=== PATIENT | female | born 1965 | race Caucasian/White ===

== ENCOUNTER 2019-07-03 01:30 | Emergency (ER) | payer OTHER ==
[2019-07-03] MEDS ORDERED: HALOPERIDOL LACTATE INJ 5 MG/1 ML VIAL IM ONE (02:19)
--- NOTE | 2019-07-03 02:23 | ER Document Report ---
ED Psych Disorder / Suicide <JOSE KIDD - Last Filed: 07/03/19 08:04> <ISAK BERNARDO - Last Filed: 07/03/19 11:29> <BASILIOKEDARDANIEL Steel - Last Filed: 07/03/19 12:49> - General Chief Complaint: Psych Problem Stated Complaint: PSYCH Time Seen by Provider: 07/03/19 02:10 Primary Care Provider: [facility] [Outside] - Follow up as needed LUIS BEAVERS MD [Primary Care Provider] - Follow up as needed Notes: Patient is a 53-year-old female that comes to the emergency department for chief complaint of bizarre behavior. She comes by EMS. Son states that he is staying with her temporarily because her on 06/27/2019, he states that she has not slept in days, he states this morning she became extremely bizarre, left the house, left her phone, had to be tracked down by the police. She then refused to come into the house for 4 hours, afterwards she simply stopped responding, she refuses to answer any questions, keeps her eyes shut, she refuses to speak, and she also disappeared again briefly and shaved her head. She does not have a history of psychiatric illness, she is does not have a history of bizarre behavior, she does not have a history of drug abuse. Past medical history of type 2 diabetes, hysterectomy, hormone therapy. (JOSE KIDD) - Related Data Allergies/Adverse Reactions: No Known Allergies Allergy (Unverified 07/03/19 03:13) Past Medical History - General Information source: Relative - son Cannot obtain history due to: Uncooperative - Social History Smoking Status: Never Smoker Frequency of alcohol use: None Drug Abuse: None Lives with: Family Family History: Reviewed & Not Pertinent Patient has suicidal ideation: No Patient has homicidal ideation: No Endocrine Medical History: Reports: Hx Diabetes Mellitus Type 2 Past Surgical History: Reports: Hx Hysterectomy - Immunizations Immunizations up to date: Yes Hx Diphtheria, Pertussis, Tetanus Vaccination: Yes <JOSE KIDD - Last Filed: 07/03/19 08:04> Review of Systems - Review of Systems Constitutional: No symptoms reported EENT: No symptoms reported Cardiovascular: No symptoms reported Respiratory: No symptoms reported Gastrointestinal: No symptoms reported Genitourinary: No symptoms reported Female Genitourinary: No symptoms reported Musculoskeletal: No symptoms reported Skin: No symptoms reported Hematologic/Lymphatic: No symptoms reported Neurological/Psychological: See HPI <JOSE KIDD - Last Filed: 07/03/19 08:04> Physical Exam <JOSE KIDD - Last Filed: 07/03/19 08:04> - Vital signs Vitals: Temp Pulse Resp BP Pulse Ox 98.3 F 105 H 17 113/60 100 07/03/19 02:11 07/03/19 02:11 07/03/19 02:11 07/03/19 02:11 07/03/19 02:11 - Notes Notes: GENERAL: Patient clutching a pillow to her chest, eyes closed, will not respond to me HEAD: Normocephalic, atraumatic. EYES: Pupils equal, round, and reactive to light. Extraocular movements intact. ENT: Oral mucosa moist, tongue midline. Oropharynx unremarkable. Airway patent. NECK: Full range of motion. Supple. Trachea midline. LUNGS: Clear to auscultation bilaterally, no wheezes, rales, or rhonchi. No respiratory distress. HEART: Borderline tachycardia, no murmur, normal rhythm ABDOMEN: Soft, non-tender. Non-distended. Bowel sounds present in all 4 quadrants. GENITOURINARY: Deferred EXTREMITIES: Moves all 4 extremities spontaneously. No edema, normal radial and dorsalis pedis pulses bilaterally. No cyanosis. BACK: no cervical, thoracic, lumbar midline tenderness. No saddle anesthesia, normal distal neurovascular exam. Moves all extremities in full range of motion. PSYCH: Refuses to answer questions or follow directions, but does appear to be awake and hear me, keeps her eyes shut SKIN: Warm, dry, normal turgor. No rashes or lesions noted. (JOSE KIDD) Course - Laboratory Result Diagrams: 07/03/19 02:46 07/03/19 02:46 <JOSE KIDD - Last Filed: 07/03/19 08:04> - Laboratory Result Diagrams: 07/03/19 02:46 07/03/19 02:46 <MELIZA RICHMOND - Last Filed: 07/03/19 12:49> - Re-evaluation Re-evalutation: EKG unremarkable, CBC with minimal leukocytosis, nonspecific. Chemistry unremarkable other than very mildly elevated calcium, glucose, protein. Urine is still pending. Alcohol negative. CAT scan of the head performed because of patient's bizarre manner and lack of responsiveness/cooperation and this was negative. Patient sister is came to bedside, son is already at bedside. They state that patient has been speaking to her as if he was there, asking why he left her. She continues to refuse to answer or respond, she will not respond to family members. She did arouse when her sister entered the room and began crying but did not give a response otherwise. Patient appears to be having a severe grief reaction complicated by lack of sleep for several days. She is stopped eating today as well. Concern for her ability to care for herself and concern for her safety as a result. Urine results still pending but either way patient will be medically cleared. Patient had to be given Haldol because she was extremely uncooperative and refused to give up her belongings and cooperate with testing including laboratory testing. Patient became distraught when we attempted to take her to bring in the pillow that hurts her 's, as result she was allowed to keep these for a grieving/psychiatric standpoint. Patient will be evaluated by the mental health team. IVC paperwork has been completed. Patient was discussed with Dr. Nick. (JOSE KIDD) - Vital Signs Vital signs: Temp Pulse Resp BP Pulse Ox 98.8 F 95 16 159/81 H 99 07/03/19 11:56 07/03/19 11:56 07/03/19 11:56 07/03/19 11:56 07/03/19 11:56 - Laboratory Laboratory results interpreted by me: 07/03/19 07/03/19 07/03/19 02:46 02:46 06:30 WBC 11.0 H Absolute Neuts (auto) 8.7 H Seg Neutrophils % 79.3 H Creatinine 0.43 L Glucose 135 H Calcium 10.4 H Total Protein 8.7 H Albumin 5.1 H Urine Protein 100 H Urine Ketones TRACE H Urine Ascorbic Acid 20 H Salicylates < 1.0 L Acetaminophen < 10 L Discharge <JOSE KIDD - Last Filed: 07/03/19 08:04> <ISAK BERNARDO - Last Filed: 07/03/19 11:29> <MELIZA RICHMOND Last Filed: 07/03/19 12:49> - Discharge Clinical Impression: Grief reaction, Uncooperative behavior Insomnia Qualifiers: Insomnia type: unspecified Qualified Code(s): G47.00 - Insomnia, unspecified Condition: Stable Disposition: HOME, SELF-CARE Additional Instructions: You have been evaluated both medical and behavioral health teams have been deemed appropriate for discharge. It is recommended you use your support network such as friends and family during this time of grief. If your feelings and emotions become too much and you are unable to cope please return to the [facility] emergency room or [facility] immediately. Referrals: [facility] [Outside] - Follow up as needed LUIS BEAVERS MD [Primary Care Provider] - Follow up as needed
[2019-07-03 03:08] LABS: ABSOLUTE BASOPHILS # (AUTO) 0.1 10^3/uL (0.0-0.2); ABSOLUTE LYMPHOCYTES (AUTO) 1.6 10^3/uL (0.5-4.7); ABSOLUTE MONOCYTES (AUTO) 0.6 10^3/uL (0.1-1.4); ABSOLUTE NEUT (AUTO) 8.7 10^3/uL (1.7-8.2); BASOPHILS % (AUTO) 0.6 % (0-2); HEMATOCRIT 41.7 % (36.0-47.0); HEMOGLOBIN 14.3 g/dL (12.0-15.5); LYMPHOCYTES % (AUTO) 14.6 % (13-45); MEAN CORPUSCULAR HEMOGLOBIN 29.9 pg (27.0-33.4); MEAN CORPUSCULAR HGB CONC 34.3 g/dL (32.0-36.0); MEAN CORPUSCULAR VOLUME 87 fl (80-97); MONOCYTES % (AUTO) 5.5 % (3-13); PLATELET COUNT 298 10^3/uL (150-450); RED BLOOD COUNT 4.79 10^6/uL (3.72-5.28); RED CELL DISTRIBUTION WIDTH 12.7 % (11.5-14.0); SEGMENTED NEUTROPHILS % (AUTO) 79.3 % (42-78); TOTAL CELLS COUNTED % (AUTO) 100 %
[2019-07-03 03:28] LABS: ALBUMIN 5.1 g/dL (3.5-5.0); ALKALINE PHOSPHATASE 86 U/L (38-126); ANION GAP 10 (5-19); ASPARTATE AMINO TRANSFERASE 32 U/L (14-36); BILIRUBIN,DIRECT 0.2 mg/dL (0.0-0.4); BILIRUBIN,TOTAL 0.6 mg/dL (0.2-1.3); BLOOD UREA NITROGEN 15 mg/dL (7-20); CALCIUM 10.4 mg/dL (8.4-10.2); CARBON DIOXIDE 28 mmol/L (22-30); CHLORIDE 102 mmol/L (98-107); GLUCOSE 135 mg/dL (75-110); POTASSIUM 3.7 mmol/L (3.6-5.0); TOTAL PROTEIN 8.7 g/dL (6.3-8.2)
[2019-07-03 03:29] LABS: ACETAMINOPHEN < 10 ug/mL (10-30); ALCOHOL < 10 mg/dL (NONE DETECTED); SALICYLATE < 1.0 mg/dL (2.0-20.0)
--- NOTE | 2019-07-03 03:58 | RADIOLOGY REPORT (SQ) ---
CT head without contrast on 07/03/2019 at 3:04 AM CLINICAL INDICATION: Altered mental status TECHNIQUE: Multiple axial images are obtained throughout the head without the administration of contrast. This exam was performed according to our departmental dose-optimization program, which includes automated exposure control, adjustment of the mA and/or kV according to patient size and/or use of iterative reconstruction technique. Total DLP is 1123.58 mGy*cm. COMPARISON: None FINDINGS: There is no hydrocephalus. There is no CT evidence of acute infarct. There is no hemorrhage. There are no abnormal extra-axial fluid collections. There is no mass, mass effect or midline shift. No bony abnormality is noted. IMPRESSION: No acute intracranial abnormality.
[2019-07-03 06:50] LABS: APPEARANCE,URINE TURBID; BILIRUBIN,URINE NEGATIVE (NEGATIVE); COLOR,URINE AMBER; GLUCOSE, URINE NEGATIVE (NEGATIVE); KETONES,URINE TRACE mg/dL (NEGATIVE); LEUKOCYTE ESTERASE,URINE NEGATIVE (NEGATIVE); NITRITE,URINE NEGATIVE (NEGATIVE); PROTEIN,URINE 100 mg/dL (NEGATIVE); UROBILINOGEN,URINE NEGATIVE mg/dL (<2.0)
[2019-07-03 07:04] LABS: URINE AMPHETAMINES SCREEN NEGATIVE; URINE BARBITURATES SCREEN NEGATIVE; URINE BENZODIAZEPINES SCREEN NEGATIVE; URINE COCAINE SCREEN NEGATIVE; URINE MARIJUANA (THC) SCREEN NEGATIVE; URINE METHADONE SCREEN NEGATIVE; URINE PHENCYCLIDINE SCREEN NEGATIVE
--- NOTE | 2019-07-03 09:11 | EKG REPORT ---
SEVERITY:- NORMAL ECG - SINUS RHYTHM : Confirmed by: Teresa Calvillo 03-Jul-2019 09:10:36
--- NOTE | 2019-07-03 11:29 | PSYCHOLOGICAL NOTE ---
Psych Note - Psych Note Date seen by psych provider: 07/03/19 Time seen by psych provider: 10:00 Psych Note: Reason for Consult: Bizarre behavior Patient's sister, Lizzy, at bedside per patient's request Patient is a 53-year-old female that comes to the emergency department for chief complaint of bizarre behavior. Patient states that she cut her hair and grief because she was thinking of her in his normal haircut. She reports that touching her hair now makes it feel like she is touching him and she feels comfort and safety in this. She denies any thoughts of wanting to harm herself. Patient sister reports she also cut her hair when she was in grief however did not shave it down as far as her sister. Patient states that she has 3 children to take care of and would never harm herself. Patient sister disclosed that she has no concerns with the p atient returning home and that she and other friends and family will be with the patient. is scheduled for tomorrow 07/04/2019. Patient is alert and orientated to person, place, time and circumstance. Mood is euthymic with congruent affect clinician notes patient engages appropriately smiles and laughs depending on conversational topic. Patient denies suicidal homicidal ideation. Delusions are absent behaviors congruent with an intact reality based presentation ie organized and linear thought process. Eye contact is well-maintained. Conversational speech is within normal rate, tone and prosody. Intellectual abilities appear to be within the average range. Attention and concentration are good. Insight, judgment, impulse control are fair. Uncomplicated bereavement No medication recommendations at this time Impression\plan: Patient is cleared from acute psychiatric services. Patient's and especially on 06/27/2019. His is 07/04/2019 F taylor. Patient reports she cut her hair because her was marine and when she touches her head she feels safe and comforted because it reminds her of touching her 's head. Patient's sister reports she also cut her hair when she was grieving in the past however personally never completely shaved it. Patient denies having any significant mental health history. Both patient and patient's sister report they have no concerns with the patient returning home. Patient sister reports she will be staying with the patient for significant amount of time during this time of grief. Clinician discussed returning to [facility] ED or psychiatric hospital [facility] if the patient is over, with the motion and unable to cope. Dr. Orellana was consulted and the care management of this patient; attending physicians in agreement with recommendations and disposition.
--- NOTE | 2019-07-03 12:49 | ER Document Report ---
Doctor's Note Notes: 07/03/19 12:48 Patient seen and examined. She is here primarily for grief. She has significant changes in behaviors. At this point she denies any suicidal or homicidal ideation, no visual or auditory hallucination. She is looking forward to being discharged, has her sister with her. She feels comfortable with follow-up counseling. On exam is a pleasant 33-year-old female laying in bed without any distress. Heart is regular rhythm, lungs are translucent bilaterally. Patient is medically cleared, no longer considered a danger to herself. We will discharge her with outpatient follow-up.
[2019-07-03 13:14] VITALS: BP 148/79
== END 2019-07-03 13:12 | disposition home or self-care (01) ==
LOC: ER 01:30
DX: F43.20 Adjustment disorder, unspecified (principal); G47.00 Insomnia, unspecified; Z63.4 Disappearance and death of family member; E11.9 Type 2 diabetes mellitus without complications; D72.829 Elevated white blood cell count, unspecified
CPT/HCPCS: 93005; 99285; 96372; 36415; 80307 ×4; 85025; 80053; 81001; 70450; 93010; J1630

== ENCOUNTER 2019-07-07 02:28 | Emergency (ER) | payer OTHER ==
[2019-07-07 03:26] LABS: ABSOLUTE BASOPHILS # (AUTO) 0.1 10^3/uL (0.0-0.2); ABSOLUTE EOSINOPHILS # (AUTO) 0.1 10^3/uL (0.0-0.6); ABSOLUTE LYMPHOCYTES (AUTO) 1.9 10^3/uL (0.5-4.7); ABSOLUTE MONOCYTES (AUTO) 0.6 10^3/uL (0.1-1.4); ABSOLUTE NEUT (AUTO) 4.2 10^3/uL (1.7-8.2); BASOPHILS % (AUTO) 1.2 % (0-2); HEMATOCRIT 42.1 % (36.0-47.0); HEMOGLOBIN 14.2 g/dL (12.0-15.5); LYMPHOCYTES % (AUTO) 27.7 % (13-45); MEAN CORPUSCULAR HEMOGLOBIN 29.9 pg (27.0-33.4); MEAN CORPUSCULAR HGB CONC 33.8 g/dL (32.0-36.0); MEAN CORPUSCULAR VOLUME 89 fl (80-97); MONOCYTES % (AUTO) 8.3 % (3-13); PLATELET COUNT 312 10^3/uL (150-450); RED BLOOD COUNT 4.76 10^6/uL (3.72-5.28); RED CELL DISTRIBUTION WIDTH 12.5 % (11.5-14.0); SEGMENTED NEUTROPHILS % (AUTO) 61.8 % (42-78); TOTAL CELLS COUNTED % (AUTO) 100 %; WHITE BLOOD COUNT 6.8 10^3/uL (4.0-10.5)
[2019-07-07] MEDS ORDERED: LORAZEPAM INJ 2 MG/1 ML VIAL IV ONE (03:46)
--- NOTE | 2019-07-07 03:55 | ER Document Report ---
ED Psych Disorder / Suicide - General Chief Complaint: manic Stated Complaint: HALLUCINATIONS/PARANOA Time Seen by Provider: 07/07/19 02:40 Primary Care Provider: LUIS BEAVERS MD [ACTIVE STAFF] - Follow up as needed TRAVEL OUTSIDE OF THE [place] IN LAST 30 DAYS: No - HPI Notes: This is a 53-year-old female who presents today with a complaint of behavioral problems. The patient has had issues with hallucinations ever since she lost her a few weeks ago. She has been grieving. EMS reports that she was responding to internal stimuli today, with evidence of hallucinations. She was then brought in for evaluation. Patient is a poor historian. She is not giving us any history. However, she is clearly responding to internal stimuli as she is talking to focus letter and exhausted. - Related Data Allergies/Adverse Reactions: No Known Allergies Allergy (Unverified 07/03/19 03:13) Past Medical History - Social History Smoking Status: Unknown if Ever Smoked Family History: Reviewed & Not Pertinent Patient has suicidal ideation: Yes Patient has homicidal ideation: No Endocrine Medical History: Reports: Hx Diabetes Mellitus Type 2 Past Surgical History: Reports: Hx Hysterectomy - Immunizations Immunizations up to date: Yes Hx Diphtheria, Pertussis, Tetanus Vaccination: Yes Review of Systems - Review of Systems -: Yes ROS unobtainable due to patient's medical condition Physical Exam - Vital signs Interpretation: Other - Unremarkable vital signs. - General General appearance: Appears well, Alert Notes: Pt is not cooperative. - Respiratory Respiratory status: No respiratory distress Chest status: Nontender Breath sounds: Normal Chest palpation: Normal - Cardiovascular Rhythm: Regular Heart sounds: Normal auscultation Murmur: No - Abdominal Inspection: Normal Distension: No distension Bowel sounds: Normal Tenderness: Nontender Organomegaly: No organomegaly - Psychological Associated symptoms: Flat affect - Patient has a flat affect. Patient is clearly responding to internal stimuli, and is expressing some paranoia also. Course - Re-evaluation Re-evalutation: 07/07/19 03:53 Clinical picture suggest acute psychosis likely secondary to severe grief reaction. We will get behavioral health assessment done. EKG shows normal sinus rhythm at 79 bpm. Normal axis. Normal intervals. No acute injury pattern. [id number] Patient is screaming and responding to internal stimuli, saying " get out ,get out" and there is nobody in the room She is restless and agitated. We will give her Ativan to help her relax. 07/07/19 05:41 Pt is doing well. Stable for assessment. - Laboratory Result Diagrams: 07/07/19 03:10 07/07/19 03:10 Laboratory results interpreted by me: 07/07/19 03:10 Potassium 3.5 L Glucose 126 H Total Protein 8.4 H Salicylates < 1.0 L Acetaminophen < 10 L Discharge - Discharge Clinical Impression: Acute psychosis Condition: Stable Disposition: OTHER Referrals: LUIS BEAVERS MD [ACTIVE STAFF] - Follow up as needed
[2019-07-07 03:58] LABS: ALBUMIN 4.9 g/dL (3.5-5.0); ALKALINE PHOSPHATASE 68 U/L (38-126); ANION GAP 12 (5-19); ASPARTATE AMINO TRANSFERASE 31 U/L (14-36); BILIRUBIN,DIRECT 0.1 mg/dL (0.0-0.4); BILIRUBIN,TOTAL 0.5 mg/dL (0.2-1.3); BLOOD UREA NITROGEN 12 mg/dL (7-20); CALCIUM 10.1 mg/dL (8.4-10.2); CARBON DIOXIDE 29 mmol/L (22-30); CHLORIDE 100 mmol/L (98-107); GLUCOSE 126 mg/dL (75-110); POTASSIUM 3.5 mmol/L (3.6-5.0); TOTAL PROTEIN 8.4 g/dL (6.3-8.2)
[2019-07-07 04:02] LABS: ACETAMINOPHEN < 10 ug/mL (10-30); ALCOHOL < 10 mg/dL (NONE DETECTED); SALICYLATE < 1.0 mg/dL (2.0-20.0)
--- NOTE | 2019-07-07 07:25 | EKG REPORT ---
SEVERITY:- NORMAL ECG - SINUS RHYTHM : Confirmed by: Teresa Calvillo 07-Jul-2019 07:24:36
[2019-07-07 08:33] LABS: URINE AMPHETAMINES SCREEN NEGATIVE; URINE BARBITURATES SCREEN NEGATIVE; URINE BENZODIAZEPINES SCREEN UNCONFIRMED POSITIVE; URINE COCAINE SCREEN NEGATIVE; URINE MARIJUANA (THC) SCREEN NEGATIVE; URINE METHADONE SCREEN NEGATIVE; URINE PHENCYCLIDINE SCREEN NEGATIVE
[2019-07-07 10:31] LABS: AMORPHOUS SEDIMENT,URINE TRACE /HPF; APPEARANCE,URINE SLIGHTLY-CLOUDY; BILIRUBIN,URINE NEGATIVE (NEGATIVE); CALCIUM OXALATE CRYSTALS,URINE MANY /HPF; COLOR,URINE YELLOW; GLUCOSE, URINE NEGATIVE (NEGATIVE); KETONES,URINE NEGATIVE (NEGATIVE); LEUKOCYTE ESTERASE,URINE NEGATIVE (NEGATIVE); NITRITE,URINE NEGATIVE (NEGATIVE); PROTEIN,URINE 100 mg/dL (NEGATIVE); URINE SPECIFIC GRAVITY 1.015; UROBILINOGEN,URINE NEGATIVE mg/dL (<2.0)
--- NOTE | 2019-07-07 10:57 | PSYCHOLOGICAL NOTE ---
Psych Note - Psych Note Date seen by psych provider: 07/07/19 Psych Note: Presenting Problem: AMS, AH, paranoia, grief ( 1-2 weeks ago). Patient was seen by [facility] 07/03/19 for bizarre/erratic behavior (cut hair and shaved head because it reminded her of and caused her to feel comfort). Attending nurse reported patient was pleasant and cooperative. Diagnosis: Depressive Disorder Uncomplicated Bereavement Impression/Plan: Recommendation to IVC patient and seek patient since continued psychosis (was seen 07/03/29) likely related to grief. Patient accepted to [facility] for inpatient hospitalization. Will move forward with that acceptance. Consulted with Dr. Orellana regarding the management and care of patient. ED Physician in agreement with recommendations.
[2019-07-07 12:33] VITALS: BP 113/75
== END 2019-07-07 12:28 | disposition other institution (70) ==
LOC: ER 02:28
DX: F23 Brief psychotic disorder (principal); E11.9 Type 2 diabetes mellitus without complications; Z90.710 Acquired absence of both cervix and uterus; Z63.4 Disappearance and death of family member
CPT/HCPCS: 36415; 80307 ×4; 85025; 80053; 81001; 93005; 93010; J2060; 96374; 99285

== ENCOUNTER 2019-07-08 09:02 | Emergency (ER) | payer OTHER ==
[2019-07-08] MEDS ORDERED: AMLODIPINE BESYLATE 5 MG TABLET PO ONE (09:28)
[2019-07-08] MEDS ORDERED: BENAZEPRIL HCL 20 MG TABLET PO ONE (09:28)
--- NOTE | 2019-07-08 09:38 | ER Document Report ---
ED General - General Chief Complaint: Psych Problem Stated Complaint: PSYCH EVAL Time Seen by Provider: 07/08/19 09:13 TRAVEL OUTSIDE OF THE [place] IN LAST 30 DAYS: No - HPI Notes: This is a 53-year-old female who presents today from [facility] for management of her blood pressure. Patient was transferred there from here for management of acute psychosis. She also has a history of h ypertension. Patient has apparently been refusing to take her medication. Her blood pressure was markedly elevated over 200 systolic. She denies any headache, chest pain, dizziness or other physical complaints. She was sent to the emergency department for management of her blood pressure. She will be going back to [facility]. - Related Data Allergies/Adverse Reactions: No Known Allergies Allergy (Verified 07/08/19 09:36) Past Medical History - Social History Smoking Status: Unknown if Ever Smoked Frequency of alcohol use: None Drug Abuse: None Family History: Reviewed & Not Pertinent Endocrine Medical History: Reports: Hx Diabetes Mellitus Type 2 Past Surgical History: Reports: Hx Hysterectomy - Immunizations Immunizations up to date: Yes Hx Diphtheria, Pertussis, Tetanus Vaccination: Yes Review of Systems - Review of Systems Cardiovascular: denies: Chest pain, Palpitations Gastrointestinal: denies: Abdominal pain, Diarrhea, Nausea, Constipation Neurological/Psychological: Hallucinations. denies: Headaches -: Yes All other systems reviewed and negative Physical Exam - Vital signs Vitals: Temp Pulse Resp BP Pulse Ox 99.0 F 79 17 174/88 H 97 07/08/19 09:17 07/08/19 09:17 07/08/19 09:17 07/08/19 09:17 07/08/19 09:17 - General General appearance: Appears well, Alert - Respiratory Respiratory status: No respiratory distress Chest status: Nontender Breath sounds: Normal Chest palpation: Normal - Cardiovascular Rhythm: Regular Heart sounds: Normal auscultation Murmur: No - Abdominal Inspection: Normal Distension: No distension Bowel sounds: Normal Tenderness: Nontender Organomegaly: No organomegaly - Neurological Neuro grossly intact: Yes Cognition: Normal Orientation: AAOx4 [place] Coma Scale Eye Opening: Spontaneous [place] Coma Scale Verbal: Oriented [place] Coma Scale Motor: Obeys Commands [place] Coma Scale Total: 15 Speech: Normal Motor strength normal: LUE, RUE, LLE, RLE Sensory: Normal - Psychological Associated symptoms: Flat affect Course - Re-evaluation Re-evalutation: 07/08/19 09:38 Clinical picture suggests uncontrolled hypertension. Patient tells me she will take her blood pressure medication. Blood pressure was 174/88. Patient has no clinical signs of endorgan damage. There is no indication for acute intervention. I will give her her morning meds. She is agreed to take her medications. She is stable to go back to [facility] for the rest of her psychiatric management. 07/08/19 09:39 07/08/19 11:35 Patient reevaluated. Patient is doing well. Blood pressure down to 165/94. She has a history of hypertension. She is stable for discharge. She will be going back to [facility] - Vital Signs Vital signs: Temp Pulse Resp BP Pulse Ox 98.4 F 87 16 165/94 H 97 07/08/19 11:20 07/08/19 11:20 07/08/19 11:20 07/08/19 11:20 07/08/19 11:20 Discharge - Discharge Clinical Impression: Hypertension Qualifiers: Hypertension type: essential hypertension Qualified Code(s): I10 - Essential (primary) hypertension Psychosis Qualifiers: Psychosis type: unspecified psychosis type Qualified Code(s): F29 - Unspecified psychosis not due to a substance or known physiological condition Condition: Stable Disposition: PSYCH HOSP/UNIT Instructions: High Blood Pressure ([facility]) Additional Instructions: It is important that you take your blood pressure medication as prescribed.
[2019-07-08 11:21] VITALS: BP 165/94
== END 2019-07-08 11:49 ==
LOC: ER 09:02
DX: F29 Unspecified psychosis not due to a substance or known physiological condition (principal); I10 Essential (primary) hypertension; E11.9 Type 2 diabetes mellitus without complications